=== PATIENT | female | born 1950 | race Caucasian/White ===

== ENCOUNTER 2024-11-01 08:26 | Day surgery (SDC) | payer MEDICARE ==
[~2024-11-01] VITALS: Ht 154.9 cm; Wt 66.2 kg
[~2024-11-01 08:26] MED LIST: IRBE75TA11 PO; LEVO50TA5 PO; LIFI1DRO4; OMEP40CA5 PO; PHENYLEPHRINE 10% OPHTH SOL 5ML OS PRN; VITA100093 PO
[2024-11-01] MEDS: OFLOXACIN 0.3 % (OCUFLOX) OPTH SOL 5ML OS ONE (08:56)
[2024-11-01] MEDS: LIDOCAINE 3.5% 1 ML OPHTH TOPICAL GEL OU ONE (08:57)
[2024-11-01] MEDS: PHENYLEPHRINE 2.5% OPHTH SOL 2ML OS SCH (08:57)
[2024-11-01] MEDS: TROPICAMIDE 1% OPHTH SOLN 15ML OS SCH (08:57)
[2024-11-01] MEDS: CYCLOPENTOLATE 1% OPHTH SOLN 2 ML BTL OS SCH (08:57)
[2024-11-01] MEDS ORDERED: MIDAZOLAM INJ 2 MG/2 ML VIAL As Ordered ONE (10:18)
[2024-11-01] MEDS: LIDOCAINE 1% SDV 5 ML VIAL As Ordered ONE (10:21)
[2024-11-01] MEDS: CEFUROXIME 1 MG/0.1 ML INTRACAMERAL INJ As Ordered ONE (10:21)
[2024-11-01] MEDS: BSS IRRIG/VANCO(10MG)/TOBRA(5MG)/EPINEPH(1:1000-0.5CC)500ML BAG-ORONLY As Ordered ONE (10:21)
[2024-11-01 10:46] VITALS: BP 174/84; TEMP 97.2; O2SAT 96
== END 2024-11-01 10:53 | disposition home or self-care (01) ==
LOC: M SDC 08:26
PROVIDERS: ATTEND Ophthalmology
DX: H25.12 Age-related nuclear cataract, left eye (principal); I10 Essential (primary) hypertension; E03.9 Hypothyroidism, unspecified; K58.9 Irritable bowel syndrome, unspecified; Z79.890 Hormone replacement therapy; Z79.899 Other long term (current) drug therapy; Z90.710 Acquired absence of both cervix and uterus; Z88.2 Allergy status to sulfonamides; Z91.048 Other nonmedicinal substance allergy status
CPT/HCPCS: 66984; J0697; J2250; V2788

== ENCOUNTER 2024-11-29 07:59 | Day surgery (SDC) | payer MEDICARE ==
[~2024-11-29] VITALS: Ht 154.9 cm; Wt 66.2 kg
[~2024-11-29 07:59] MED LIST changes: +MIDAZOLAM INJ 2 MG/2 ML VIAL As Ordered ONE; +PHENYLEPHRINE 10% OPHTH SOL 5ML OD PRN; -PHENYLEPHRINE 10% OPHTH SOL 5ML OS PRN
[2024-11-29] MEDS: LIDOCAINE 3.5% 1 ML OPHTH TOPICAL GEL OU ONE (08:51)
[2024-11-29] MEDS: OFLOXACIN 0.3 % (OCUFLOX) OPTH SOL 5ML OD ONE (08:51)
[2024-11-29] MEDS: PHENYLEPHRINE 2.5% OPHTH SOL 2ML OD SCH (08:52)
[2024-11-29] MEDS: CYCLOPENTOLATE 1% OPHTH SOLN 2 ML BTL OD SCH (08:52)
[2024-11-29] MEDS: TROPICAMIDE 1% OPHTH SOLN 15ML OD SCH (08:52)
[2024-11-29] MEDS: BSS IRRIG/VANCO(10MG)/TOBRA(5MG)/EPINEPH(1:1000-0.5CC)500ML BAG-ORONLY As Ordered ONE (09:42)
[2024-11-29] MEDS: CEFUROXIME 1 MG/0.1 ML INTRACAMERAL INJ As Ordered ONE (09:42)
[2024-11-29] MEDS: LIDOCAINE 1% SDV 5 ML VIAL As Ordered ONE (09:42)
[2024-11-29 09:54] VITALS: BP 152/78; TEMP 97.4; O2SAT 98
== END 2024-11-29 10:06 | disposition home or self-care (01) ==
LOC: M SDC 07:59
PROVIDERS: ATTEND Ophthalmology
DX: H25.11 Age-related nuclear cataract, right eye (principal); E03.9 Hypothyroidism, unspecified; I10 Essential (primary) hypertension; K58.9 Irritable bowel syndrome, unspecified; Z79.899 Other long term (current) drug therapy; Z79.890 Hormone replacement therapy; Z88.2 Allergy status to sulfonamides; Z91.048 Other nonmedicinal substance allergy status; Z90.710 Acquired absence of both cervix and uterus; Z98.42 Cataract extraction status, left eye
CPT/HCPCS: 66984; J0697; J2250; J3010; V2788